=== PATIENT | female | born 1970 | race Caucasian/White ===

== ENCOUNTER 2016-11-05 21:54 | Inpatient (IN) | payer SELFPAY ==
--- NOTE | 2016-11-05 23:02 | ED Physician Chart ---
Chief Complaint/HPI - Patient Information Date Seen:: 11/05/16 Time Seen:: 22:52 Chief Complaint:: rt flank pain History of Present Illness:: pt seems to be homeless. [place] bus [place]. is complaining of rt side abd pain. she has had a cough recently although can not tell me what color is sputum and has non to produce now. pt says the pain is at rt side of abd and she is worried she has appendicitis. has had no n/v/d. no fever. As I am questioning her about her PMH (and not getting any answers after 2-3 different phrasings) after a brief and somewhat dubious cough spell ..pt begins yelling "what the fuck is wrong with you cant you see im coughing why dont you bring me some fcking cough medicine now..." ...at this point I informed pt I would be seeing her in company of a staff member as I do not want to be implicated as having initiated this type of unreasonable communication... I returned minutes later w a staffing specialist. Minutes later pt is taking offense that I have asked her how long she has been off her bp meds. SHe has refused to answer this question. she did inform me she is homeless. Allergies:: Allergies Allergy/AdvReac Type Severity Reaction Status Date / Time No Known Allergies Allergy Verified 11/05/16 22:03 Vitals:: Vital Signs - 8 hr 11/05/16 22:00 Temp 98.9 F HR 113 RR 19 BP 157/109 O2 Sat % 100 Historian:: Patient Review of Systems - Review of Systems General/Constitutional: No fever, No chills, No weight loss, No weakness, No diaphoresis, No edema, No loss of appetite Skin: No skin lesions, No rash, No bruising Head: No headache, No light-headedness Eyes: No loss of vision, No pain, No diplopia ENT: No earache, No nasal drainage, No sore throat, No tinnitus Neck: No neck pain, No swelling, No thyromegaly, No stiffness, No mass noted Cardio Vascular: No chest pain, No palpitations, No PND, No orthopnea, No edema Pulmonary: No SOB, No cough, No sputum, No wheezing GI: No nausea, No vomiting, No diarrhea, Pain (rt flank), No pain, No melena, No hematochezia, No constipation, No hematemesis G/U: No dysuria, No frequency, No hematuria Musculoskeletal: No bone or joint pain, No back pain, No muscle pain Endocrine: No polyuria, No polydipsia Psychiatric: No prior psych history, No depression, No anxiety, No suicidal ideation Hematopoietic: No bruising, No lymphadenopathy Allergic/Immuno: No urticaria, No angioedema Neurological: No syncope, No focal symptoms, No weakness, No paresthesia, No headache, No seizure, No dizziness, No confusion, No vertigo Past Medical History - Past Medical History Past Medical History: HTN Social History: Homeless Medication: None Family Medical History - Family Member Father Hx Family Hypertension: Yes Physical Exam - Physical Examination General/Constitutional: Awake, Well-developed, well-nourished, Alert, No distress, GCS 15, Non-toxic appearing, Ambulatory Head: Atraumatic Eyes: Lids, conjuctiva normal, PERRL, EOMI Skin: Nl inspection, No rash, No skin lesions, No ecchymosis, Well hydrated, No lymphadenopathy ENMT: External ears, nose nl, Nasal exam nl, Lips, teeth, gums nl Neck: Nontender, Full ROM w/o pain, No JVD, No nuchal rigidity, No bruit, No mass, No stridor Respiratory: Nl effort/Exclusion, Clear to Auscultation, No Wheeze/Rhonchi/Rales Other Respiratory comments:: i have heard no cough except for the 1x when we were discussing her cough (lt coughing w no ronchi nor deep bronchial congestive sounds/no sob). Cardio Vascular: RRR, No murmur, gallop, rubs, NL S1 S2 GI: No tenderness/rebounding/guarding, No organomegaly, No hernia, Normal BS's, Nondistended, No mass/bruits, No McBurney tenderness Other GI comments:: vague tndr rt side flank/abd. no masses. nrml bs. no rebound Extremities: No tenderness or effusion, Full ROM, normal strength in all extremities, No edema, Normal digits & nails Neuro/Psych: Alert/oriented, DTR's symmetric, Normal sensory exam, Normal motor strength, Mood normal, Normal gait, No focal deficits Other Neuro/Psych comments:: pt is easily agitated w minimal provocation to angry outburst Misc: normal gait, Normal back, No paraspinal tenderness Labs/Radiology/EKG Results - Lab Results Results: Laboratory Tests 11/05/16 11/05/16 11/05/16 23:10 23:10 23:24 WBC 12.5 H RBC 4.90 Hgb 13.4 Hct 40.7 MCV 83.1 MCH 27.3 MCHC Differential 32.9 RDW 13.9 Plt Count 434 H MPV 7.8 Neutrophils % 82.1 H Lymphocytes % 10.4 L Monocytes % 6.2 Eosinophils % 0.9 Basophils % 0.4 Sodium Potassium Chloride Carbon Dioxide Anion Gap BUN Creatinine Est GFR ( Amer) Est GFR (Non-Af Amer) BUN/Creatinine Ratio Glucose Whole Bld Lactic Acid Calcium Total Bilirubin AST ALT Alkaline Phosphatase Total Protein Albumin Globulin Albumin/Globulin Ratio Lipase Urine Source CLEAN C Urine Color YELLOW Urine Clarity HAZY Urine pH 7.5 Ur Specific [place] 1.015 Urine Protein NEGATIVE Urine Glucose (UA) NEGATIVE Urine Ketones NEGATIVE Urine Blood MODERATE H Urine Nitrate NEGATIVE Urine Bilirubin NEGATIVE Urine Urobilinogen 2.0 Ur Leukocyte Esterase LARGE H Urine RBC 2-5 Urine WBC 10-25 H Ur Epithelial Cells MODERATE Urine Bacteria MODERATE Urine Test NEGATIVE 11/05/16 11/05/16 23:24 23:24 WBC RBC Hgb Hct MCV MCH MCHC Differential RDW Plt Count MPV Neutrophils % Lymphocytes % Monocytes % Eosinophils % Basophils % Sodium 135 L Potassium 3.6 Chloride 100 Carbon Dioxide 27.0 Anion Gap 11.6 BUN 9 Creatinine 0.7 Est GFR ( Amer) > 60.0 Est GFR (Non-Af Amer) > 60.0 BUN/Creatinine Ratio 12.9 Glucose 78 Whole Bld Lactic Acid 0.46 L Calcium 10.1 Total Bilirubin 0.7 AST 24 ALT 24 Alkaline Phosphatase 94 Total Protein 8.2 Albumin 4.5 Globulin 3.7 Albumin/Globulin Ratio 1.2 Lipase 26 Urine Source Urine Color Urine Clarity Urine pH Ur Specific [place] Urine Protein Urine Glucose (UA) Urine Ketones Urine Blood Urine Nitrate Urine Bilirubin Urine Urobilinogen Ur Leukocyte Esterase Urine RBC Urine WBC Ur Epithelial Cells Urine Bacteria Urine Test - Radiology Results Results: ct abd/p - pos air/fluid levels. ED Septic Shock - . Is Septic Shock (SBP<90, OR Lactate>4 mmol\\L) present?: No - <6hrs of presentation: Vital Signs: Vital Signs - 8 hr 11/05/16 22:00 Temp 98.9 F HR 113 RR 19 BP 157/109 O2 Sat % 100 Reassessment (Disposition) - Reassessment Reassessment Condition:: Improved - Diagnosis Diagnosis:: 1 flank pain 2 uti/ possible pyelonephritis 3 air/fluid levels seen on ct abd/pelvis ...possible ileus - Patient Disposition Admitted to:: Med/Surg Condition at Disposition:: Improved
[2016-11-05 23:36] LABS: % BASOPHILS 0.4 % (0.0-2.0); % EOSINOPHILS 0.9 % (0.0-5.0); % LYMPHOCYTES 10.4 % (20.0-50.0); % MONOCYTES 6.2 % (2.0-10.0); % NEUTROPHILS 82.1 % (40.0-80.0); HEMATOCRIT 40.7 % (35.0-45.0); HEMOGLOBIN 13.4 gm/dL (11.7-15.5); MEAN CELL VOLUME 83.1 fl (81-100); MEAN CORPUSCULAR HEMOGLOBIN 27.3 pg (27.0-31.0); MEAN CORPUSCULAR HGB CONC 32.9 pg (28.0-36.0); MEAN PLATELET VOLUME 7.8 fl; NEUTROPHILE ABSOLUTE 10.2 Th/cmm (1.8-8.0); PLATELET COUNT 434 Th/cmm (150-400); RED CELL DISTRIBUTION WIDTH 13.9 % (11.5-20.0)
[2016-11-05 23:37] LABS: WHITE BLOOD COUNT 12.5 Th/cmm (4.8-10.8)
[2016-11-05 23:44] LABS: URINE BILIRUBIN NEGATIVE (NEGATIVE); URINE BLOOD MODERATE (NEGATIVE); URINE COLOR YELLOW; URINE GLUCOSE (UA) NEGATIVE (NEGATIVE); URINE KETONE NEGATIVE (NEGATIVE); URINE PH 7.5; URINE PROTEIN NEGATIVE (NEGATIVE)
[2016-11-05 23:46] LABS: ALB/GLOB RATIO 1.2 (1.0-1.8); ALKALINE PHOSPHATASE 94 U/L (34-104); ANION GAP 11.6 (7.0-16.0); BILIRUBIN,TOTAL 0.7 mg/dL (0.3-1.0); BUN - UREA NITROGEN 9 mg/dL (7-25); BUN/CREATININE RATIO 12.9; CALCIUM SERUM 10.1 mg/dL (8.6-10.3); CHLORIDE 100 mEq/L (98-107); CREATININE - SERUM 0.7 mg/dL (0.6-1.2); GLUCOSE 78 mg/dL (70-105); LIPASE 26 U/L (11-82); POTASSIUM SERUM 3.6 mEq/L (3.5-5.1); SGOT 24 U/L (13-39); SGPT/ALT 24 U/L (7-52); SODIUM SERUM 135 mEq/L (136-145)
[2016-11-05 23:46] LABS: URINE BACTERIA MODERATE /hpf (NONE SEEN); URINE EPITHELIAL CELLS MODERATE /lpf (FEW)
[2016-11-06] MEDS ORDERED: Levofloxacin 500mg/100mL 500 MG/100 ML BAG IV ONE (01:02)
[2016-11-06] MEDS: Levofloxacin 500mg/100mL 500 MG/100 ML BAG IV ONE (01:03)
--- NOTE | 2016-11-06 02:01 | General Progress Note ---
Subjective - Review of Systems Service Date: 11/06/16 Events since last encounter: 1;52...pt was planned for admission. about 10 min ago pt suddenly informed Marques(admit medical records clerk) that she wanted her iv out NOW and wanted to leave immediately or was threatening to [facility]. Santo (rn) and myself went to room and inquired why this sudden change....we had just been to the room about 20 minutes prior to confirm that she would allow the admission before we called Dr Esposito and she had confirmed that she was willing to be admitted and had no complaints at that time. Pt at this point began verbally attacking the hospital (saying she has no nelson in this hospital system) and me personally w personal accusations of improper behavior....this despite the fact my behavior has always been courteous and I have made it a point to not be in the room alone(without plating inspector) w her since her first outburst. Her IV was removed and she left ama...I would have written her a rx for abx for uti but she left rapidly and had stated she no nelson in our/my care. pt left AMA. DX unchanged condition: unchanged Objective - Results Result Diagrams: 11/05/16 23:24 11/05/16 23:24 Recent Labs: Laboratory Last Values WBC 12.5 Th/cmm (4.8-10.8) H 11/05/16 23:24 RBC 4.90 Mil/cmm (3.80-5.10) 11/05/16 23:24 Hgb 13.4 gm/dL (11.7-15.5) 11/05/16 23:24 Hct 40.7 % (35.0-45.0) 11/05/16 23:24 MCV 83.1 fl (81-100) 11/05/16 23:24 MCH 27.3 pg (27.0-31.0) 11/05/16 23:24 MCHC Differential 32.9 pg (28.0-36.0) 11/05/16 23:24 RDW 13.9 % (11.5-20.0) 11/05/16 23:24 Plt Count 434 Th/cmm (150-400) H 11/05/16 23:24 MPV 7.8 fl 11/05/16 23:24 Neutrophils % 82.1 % (40.0-80.0) H 11/05/16 23:24 Lymphocytes % 10.4 % (20.0-50.0) L 11/05/16 23:24 Monocytes % 6.2 % (2.0-10.0) 11/05/16 23:24 Eosinophils % 0.9 % (0.0-5.0) 11/05/16 23:24 Basophils % 0.4 % (0.0-2.0) 11/05/16 23:24 Sodium 135 mEq/L (136-145) L 11/05/16 23:24 Potassium 3.6 mEq/L (3.5-5.1) 11/05/16 23:24 Chloride 100 mEq/L (98-107) 11/05/16 23:24 Carbon Dioxide 27.0 mEq/L (21.0-31.0) 11/05/16 23:24 Anion Gap 11.6 (7.0-16.0) 11/05/16 23:24 BUN 9 mg/dL (7-25) 11/05/16 23:24 Creatinine 0.7 mg/dL (0.6-1.2) 11/05/16 23:24 Est GFR ( Amer) > 60.0 ml/min (>90) 11/05/16 23:24 Est GFR (Non-Af Amer) > 60.0 ml/min 11/05/16 23:24 BUN/Creatinine Ratio 12.9 11/05/16 23:24 Glucose 78 mg/dL (70-105) 11/05/16 23:24 Whole Bld Lactic Acid 0.46 mmol/L (0.60-1.99) L 11/05/16 23:24 Calcium 10.1 mg/dL (8.6-10.3) 11/05/16 23:24 Total Bilirubin 0.7 mg/dL (0.3-1.0) 11/05/16 23:24 AST 24 U/L (13-39) 11/05/16 23:24 ALT 24 U/L (7-52) 11/05/16 23:24 Alkaline Phosphatase 94 U/L (34-104) 11/05/16 23:24 Total Protein 8.2 gm/dL (6.0-8.3) 11/05/16 23:24 Albumin 4.5 gm/dL (3.7-5.3) 11/05/16 23:24 Globulin 3.7 gm/dL 11/05/16 23:24 Albumin/Globulin Ratio 1.2 (1.0-1.8) 11/05/16 23:24 Lipase 26 U/L (11-82) 11/05/16 23:24 Urine Source CLEAN C 11/05/16 23:10 Urine Color YELLOW 11/05/16 23:10 Urine Clarity HAZY (CLEAR) 11/05/16 23:10 Urine pH 7.5 11/05/16 23:10 Ur Specific [place] 1.015 (1.005-1.030) 11/05/16 23:10 Urine Protein NEGATIVE mg/dL (NEGATIVE) 11/05/16 23:10 Urine Glucose (UA) NEGATIVE mg/dL (NEGATIVE) 11/05/16 23:10 Urine Ketones NEGATIVE mg/dL (NEGATIVE) 11/05/16 23:10 Urine Blood MODERATE (NEGATIVE) H 11/05/16 23:10 Urine Nitrate NEGATIVE (NEGATIVE) 11/05/16 23:10 Urine Bilirubin NEGATIVE (NEGATIVE) 11/05/16 23:10 Urine Urobilinogen 2.0 E.U./dL (0.2 - 1.0) 11/05/16 23:10 Ur Leukocyte Esterase LARGE (NEGATIVE) H 11/05/16 23:10 Urine RBC 2-5 /hpf (0-5) 11/05/16 23:10 Urine WBC 10-25 /hpf (0-5) H 11/05/16 23:10 Ur Epithelial Cells MODERATE /lpf (FEW) 11/05/16 23:10 Urine Bacteria MODERATE /hpf (NONE SEEN) 11/05/16 23:10 Urine Test NEGATIVE 11/05/16 23:10 - Physical Exam Vitals and I&O: Vital Signs Temp 98.8 F 11/05/16 23:29 Pulse 106 11/05/16 23:29 Resp 18 11/05/16 23:29 BP 148/95 11/05/16 23:29 Pulse Ox 100 11/05/16 23:29 Intake & Output 11/05/16 11/05/16 11/06/16 06:59 18:59 06:59 Weight (lbs) 68.946 kg
--- NOTE | 2016-11-06 08:50 | Diagnostic Imaging Report ---
CT scan abdomen and pelvis without intravenous contrast HISTORY: Pain Total DLP equals 408 CTDI equals 8.3 Axial sections were obtained from the xiphoid process down to the pubic symphysis. Evaluation is limited due to the absence of oral/bowel contrast. The liver exhibits a homogeneous parenchyma. No focal lesions. The spleen appears normal. No focal abnormality seen in the region of the pancreas. No focal renal lesions. The exam of the bowel is limited due to the absence of oral contrast. Mild small bowel dilatation with questionable wall thickening. Enteritis cannot be excluded. Clinical correlation is needed. Mildly distended stool-filled large bowel noted. The exam of the pelvis demonstrates preservation of normal fat planes. No abnormal masses. No definite abnormal fluid collections. IMPRESSION: 1. Limited exam due to the absence/bowel contrast. 2. Mildly dilated small bowel questionable wall thickening. Again, evaluation is limited due to the absence of bowel contrast. Enteritis cannot be excluded. Clinical correlation is needed. 3. Mildly distended stool-filled large bowel.
--- NOTE | 2016-11-06 08:51 | Diagnostic Imaging Report ---
Portable chest x-ray History: Cough Allowing for portable technique the heart size is normal. No focal pulmonary parenchymal processes. No hilar or mediastinal abnormalities. Impression: No acute abnormalities.
== END 2016-11-06 01:45 | disposition left against medical advice (07) | DRG 389 ==
LOC: ER 21:54 → MSI 11-06 01:00
PROVIDERS: ADMIT General Practice; ATTEND General Practice
DX: K56.7 Ileus, unspecified (principal); N12 Tubulo-interstitial nephritis, not specified as acute or chronic
CPT/HCPCS: 36415-UA; 71010-TC; 80053-TC; 81001-TC; 81025-TC; 83605; 83690-TC; 85025-TC; 87086-90; J1956